=== PATIENT | male | born 1990 | race African-American/Black ===

== ENCOUNTER 2021-02-01 20:58 | Emergency (ER) | payer OTHER, MEDICAID ==
[~2021-02-01] VITALS: Ht 182.9 cm; Wt 112.0 kg
[2021-02-01 21:16] VITALS: BP 141/87
[2021-02-01] MEDS ORDERED: IBUPROFEN 600MG TABLET PO STA (21:57)
[2021-02-01 23:09] LABS: BASOPHILS % 0.5 % (0.0-2.0); EOSINOPHILS % 2.3 % (0.0-5.0); HEMATOCRIT. 45.8 % (42.0-52.0); LYMPHOCYTES % 17.6 % (20.0-50.0); MEAN CORPUSCULAR HEMOGLOBIN 30.6 pg (28.0-32.0); MEAN CORPUSCULAR VOLUME 93.6 fL (80.0-94.0); MONOCYTES % 5.1 % (2.0-8.0); NEUTROPHILS % 74.5 % (40.0-76.0); PLATELET 335 x1000/uL (130-400); RED BLOOD CELL COUNT 4.89 mill/uL (4.7-6.1); RED CELL DISTRIBUTION WIDTH 12.8 % (11.6-14.6)
[2021-02-01 23:12] LABS: CLARITY URINE TURBID (CLEAR); COLOR URINE YELLOW (YELLOW); KETONES URINE NEGATIVE (NEGATIVE); LEUKOCYTE ESTERASE URINE 3+ (NEGATIVE); NITRITE URINE NEGATIVE (NEGATIVE); OCCULT BLOOD URINE 3+ (NEGATIVE); PH URINE 5.5 (4.5-8.0); PROTEIN URINE 3+ (NEGATIVE); SPECIFIC GRAVITY URINE 1.016 (1.005-1.030); UROBILINOGEN URINE 0.2 E.U./dL (0.2-1.0)
[2021-02-01 23:17] LABS: CHLORIDE 108 mEq/L (98-107)
[2021-02-01 23:21] LABS: ETHANOL BLOOD < 10 mg/dL
[2021-02-01 23:25] LABS: *AMPHETAMINES SCREEN URINE NEGATIVE (NEGATIVE); *BARBITURATES SCREEN URINE NEGATIVE (NEGATIVE); CANNABINOID URINE SCREEN NEGATIVE (NEGATIVE); OPIATES URINE SCREEN PRESUMTIVE POSITIVE (NEGATIVE); PHENCYCLIDINE URINE SCREEN NEGATIVE (NEGATIVE)
[2021-02-01 23:27] LABS: *BENZODIAZEPINES SCREEN URINE NEGATIVE (NEGATIVE); *COCAINE SCREEN URINE NEGATIVE (NEGATIVE); METHADONE URINE SCREEN NEGATIVE (NEGATIVE)
[2021-02-01] MEDS ORDERED: CEPH500C2 MT (23:36)
== END 2021-02-02 00:12 | disposition home or self-care (01) ==
LOC: ER 20:58
DX: I16.0 Hypertensive urgency (principal); N30.00 Acute cystitis without hematuria; I10 Essential (primary) hypertension; Z87.891 Personal history of nicotine dependence
CPT/HCPCS: 36415; 71045; 80053; 80305; 80320; 81003; 85025; 93005; 99285; G0480